=== PATIENT | female | born 1975 | race Caucasian/White ===

== ENCOUNTER 2018-09-09 04:27 | Inpatient (IN) | payer MEDICAID ==
[~2018-09-09] VITALS: Ht 121.9 cm; Wt 31.5 kg
[~2018-09-09 04:27] MED LIST: DIVA-75 PO; ETHO250C5 PO; PHEN15TA18 PO; PHEN30TA42 PO
[2018-09-09] MEDS ORDERED: ONDANSETRON HCL 4MG/2ML INJ IV STA (05:12)
[2018-09-09] MEDS ORDERED: LORAZEPAM 2MG/ML CPJ IV ONE (05:15)
[2018-09-09 05:47] LABS: BASOPHILS % 0.7 % (0.0-2.0); EOSINOPHILS % 3.4 % (0.0-5.0); HEMATOCRIT. 33.5 % (36.0-48.0); HEMOGLOBIN. 11.1 g/dL (12.0-16.0); MEAN CORPUSCULAR HEMOGLOBIN 28.8 pg (28.0-32.0); MEAN CORPUSCULAR VOLUME 86.8 fL (81.0-99.0); MONOCYTES % 8.2 % (2.0-8.0); NEUTROPHILS % 43.7 % (40.0-76.0); PLATELET 252 x1000/uL (130-400); RED BLOOD CELL COUNT 3.86 mill/uL (4.2-5.4); RED CELL DISTRIBUTION WIDTH 18.1 % (11.6-14.6)
[2018-09-09 05:51] LABS: CHLORIDE 105 mEq/L (98-107)
[2018-09-09 06:09] LABS: PHENOBARBITAL 26.9 ug/mL (15.0-40.0)
[2018-09-09] MEDS ORDERED: HYDROCODONE/ACETAMINOPHEN 5/325MG TABLET PO PRN (06:30)
[2018-09-09] MEDS ORDERED: ACETAMINOPHEN 325MG TABLET PO PRN (06:30)
[2018-09-09] MEDS ORDERED: CLONIDINE 0.1MG TABLET PO PRN (06:30)
[2018-09-09] MEDS ORDERED: ONDANSETRON HCL 4MG/2ML INJ IV PRN (06:30)
[2018-09-09] MEDS ORDERED: LORAZEPAM 2MG/ML CPJ IV PRN (06:30)
[2018-09-09] MEDS ORDERED: IPRATROPIUM/ALBUTEROL 0.5-3(2.5)MG/3ML NEB INH PRN (06:30)
[2018-09-09 07:02] LABS: LDL CHOLESTEROL 93 mg/dL (5-100); PHOSPHORUS 3.6 mg/dL (2.5-4.9)
[2018-09-09 07:05] LABS: HDL CHOLESTEROL 95 mg/dL (40-59)
[2018-09-09 09:00] VITALS: BP_SYST 103; BP_SYST 165; BP_DIAS 65; BP_DIAS 96
[2018-09-09] MEDS ORDERED: DIVALPROEX SODIUM 250 MG PO SCH (09:00)
[2018-09-09] MEDS ORDERED: PHENOBARBITAL 30 MG PO SCH (09:00)
[2018-09-09 09:02] LABS: CLARITY URINE CLEAR (CLEAR); COLOR URINE YELLOW (YELLOW); KETONES URINE NEGATIVE (NEGATIVE); LEUKOCYTE ESTERASE URINE NEGATIVE (NEGATIVE); NITRITE URINE NEGATIVE (NEGATIVE); OCCULT BLOOD URINE 3+ (NEGATIVE); PROTEIN URINE NEGATIVE (NEGATIVE); SPECIFIC GRAVITY URINE 1.007 (1.005-1.030); UROBILINOGEN URINE 0.2 E.U./dL (0.2-1.0)
[2018-09-09] MEDS ORDERED: DIVALPROEX SODIUM 250MG DR TABLET PO SCH (09:15)
[2018-09-09 10:03] LABS: *AMPHETAMINES SCREEN URINE NEGATIVE (NEGATIVE); *BENZODIAZEPINES SCREEN URINE NEGATIVE (NEGATIVE); *COCAINE SCREEN URINE NEGATIVE (NEGATIVE); CANNABINOID URINE SCREEN NEGATIVE (NEGATIVE); OPIATES URINE SCREEN NEGATIVE (NEGATIVE); PHENCYCLIDINE URINE SCREEN NEGATIVE (NEGATIVE)
[2018-09-09 10:04] LABS: METHADONE URINE SCREEN NEGATIVE (NEGATIVE)
[2018-09-09 10:12] LABS: *BARBITURATES SCREEN URINE PRESUMTIVE POSITIVE (NEGATIVE)
[2018-09-09] MEDS: PHENOBARBITAL 30 MG TABLET PO SCH ×2 (10:56→20:49)
[2018-09-09 12:00] VITALS: BP 103/65
[2018-09-09] MEDS: ETHOSUXIMIDE 250 MG CAPSULE PO SCH ×2 (14:12→20:53)
[2018-09-09 16:00] VITALS: BP 98/65
[2018-09-09 18:07] LABS: TOTAL IRON BINDING CAPACITY 348 ug/dL (250-450)
[2018-09-09 18:19] LABS: FOLIC ACID (FOLATE) SERUM >20 ng/mL ng/mL (>5.38)
[2018-09-09 18:30] LABS: FERRITIN 26 ng/mL (10-291); VITAMIN B12 SERUM 514 pg/mL (211-911)
[2018-09-09 20:00] VITALS: BP 122/86
[2018-09-09] MEDS: DIVALPROEX SODIUM 250MG DR TABLET PO SCH (20:49)
[2018-09-09] MEDS ORDERED: PHENOBARBITAL 15 MG PO SCH (21:00)
[2018-09-10] VITALS: BP 137/95
[2018-09-10 04:00] VITALS: BP 109/73
[2018-09-10 08:00] VITALS: BP_SYST 103; BP_SYST 121; BP_DIAS 58; BP_DIAS 69
[2018-09-10 08:04] LABS: BASOPHILS % 0.5 % (0.0-2.0); EOSINOPHILS % 1.5 % (0.0-5.0); HEMATOCRIT. 27.4 % (36.0-48.0); HEMOGLOBIN. 9.2 g/dL (12.0-16.0); LYMPHOCYTES % 23.5 % (20.0-50.0); MEAN CORPUSCULAR HEMOGLOBIN 29.3 pg (28.0-32.0); MEAN CORPUSCULAR VOLUME 86.7 fL (81.0-99.0); NEUTROPHILS % 70.5 % (40.0-76.0); PLATELET 199 x1000/uL (130-400); RED BLOOD CELL COUNT 3.15 mill/uL (4.2-5.4); RED CELL DISTRIBUTION WIDTH 18.1 % (11.6-14.6)
[2018-09-10 08:06] LABS: CHLORIDE 102 mEq/L (98-107)
[2018-09-10] MEDS: PHENOBARBITAL 30 MG TABLET PO SCH ×2 (08:55→21:09)
[2018-09-10] MEDS: DIVALPROEX SODIUM 250MG DR TABLET PO SCH ×2 (08:55→21:08)
[2018-09-10] MEDS: ETHOSUXIMIDE 250 MG CAPSULE PO SCH ×2 (08:58→21:09)
[2018-09-10 12:00] VITALS: BP 106/74
[2018-09-10 14:00] VITALS: BP 119/89
[2018-09-10 20:00] VITALS: BP 126/81
[2018-09-11] VITALS: BP 141/92
[2018-09-11 04:00] VITALS: BP 132/87
[2018-09-11 08:00] VITALS: BP 103/72
[2018-09-11 09:28] LABS: BASOPHILS % 0.6 % (0.0-2.0); EOSINOPHILS % 5.9 % (0.0-5.0); HEMATOCRIT. 28.3 % (36.0-48.0); HEMOGLOBIN. 9.5 g/dL (12.0-16.0); LYMPHOCYTES % 34.5 % (20.0-50.0); MEAN CORPUSCULAR HEMOGLOBIN 29.6 pg (28.0-32.0); MEAN CORPUSCULAR VOLUME 87.7 fL (81.0-99.0); MEAN PLATELET VOLUME 7.1 fl (7.4-10.4); MONOCYTES % 4.9 % (2.0-8.0); NEUTROPHILS % 54.1 % (40.0-76.0); PLATELET 205 x1000/uL (130-400); RED BLOOD CELL COUNT 3.23 mill/uL (4.2-5.4); RED CELL DISTRIBUTION WIDTH 18.4 % (11.6-14.6)
[2018-09-11] MEDS: ETHOSUXIMIDE 250 MG CAPSULE PO SCH (09:29)
[2018-09-11] MEDS: PHENOBARBITAL 30 MG TABLET PO SCH (09:29)
[2018-09-11] MEDS: DIVALPROEX SODIUM 250MG DR TABLET PO SCH (09:29)
[2018-09-11 09:50] LABS: CHLORIDE 105 mEq/L (98-107)
[2018-09-11 12:00] VITALS: BP 112/80
[2018-09-11] MEDS ORDERED: DIVA250T4 PO (12:23)
[2018-09-11] MEDS ORDERED: FERR325T6 MT (12:23)
[2018-09-11 13:08] VITALS: BP 112/80
== END 2018-09-11 16:00 | disposition home or self-care (01) | DRG 53 ==
LOC: ER 05:23 → 5WST 05:45 → EDBEDREQ 05:47 → EDBEDREQTM 05:47 → ENRESERV 07:28
PROVIDERS: ADMIT Internal Medicine; ATTEND Internal Medicine
DX: G40.909 Epilepsy, unspecified, not intractable, without status epilepticus (principal); G80.9 Cerebral palsy, unspecified; D64.9 Anemia, unspecified; N21.0 Calculus in bladder; D72.829 Elevated white blood cell count, unspecified; E78.00 Pure hypercholesterolemia, unspecified; E78.5 Hyperlipidemia, unspecified; F79 Unspecified intellectual disabilities; I10 Essential (primary) hypertension; R31.9 Hematuria, unspecified
CPT/HCPCS: 36415; 70551; 71045; 74176; 76770; 80048; 80061; 80165; 80184; 80185; 80305; 82607; 82728; 82746; 83036; 83540; 83550; 83605; 83735; 84100; 84443; 93005; 99291; J2060; J2405

== ENCOUNTER 2019-07-31 01:07 | Emergency (ER) | payer MEDICAID ==
[~2019-07-31] VITALS: Ht 129.5 cm
[~2019-07-31 01:07] MED LIST changes: -DIVA-75 PO; +DIVA250T4 PO; +FERR325T6 MT
[2019-07-31 02:35] VITALS: BP 124/67
== END 2019-07-31 02:36 | disposition home or self-care (01) ==
LOC: ER 01:31
DX: R05 Cough (principal); G80.9 Cerebral palsy, unspecified
CPT/HCPCS: 71045; 99283

== ENCOUNTER 2020-02-29 11:56 | Emergency (ER) | payer MEDICARE, MEDICAID ==
[~2020-02-29] VITALS: Ht 96.5 cm; Wt 34.0 kg
[2020-02-29] MEDS ORDERED: SODIUM CHLORIDE 0.9% 1,000 ML IV ONE ×3 (12:16→14:00)
[2020-02-29 13:29] LABS: CHLORIDE 109 mEq/L (98-107)
[2020-02-29 13:33] LABS: BASOPHILS % 0.7 % (0.0-2.0); EOSINOPHILS % 3.6 % (0.0-5.0); HEMATOCRIT. 38.6 % (36.0-48.0); HEMOGLOBIN. 13.4 g/dL (12.0-16.0); MEAN CORPUSCULAR HEMOGLOBIN 32.1 pg (28.0-32.0); MEAN CORPUSCULAR VOLUME 92.2 fL (81.0-99.0); MEAN PLATELET VOLUME 6.7 fl (7.4-10.4); MONOCYTES % 6.1 % (2.0-8.0); NEUTROPHILS % 65.6 % (40.0-76.0); PLATELET 286 x1000/uL (130-400); RED BLOOD CELL COUNT 4.19 mill/uL (4.2-5.4); RED CELL DISTRIBUTION WIDTH 14.5 % (11.6-14.6)
[2020-02-29 13:34] LABS: ETHANOL BLOOD < 10 mg/dL; HCG SCREEN NEGATIVE
[2020-02-29 13:41] LABS: PHENOBARBITAL 74.2 ug/mL (15.0-40.0)
[2020-02-29 13:50] LABS: CLARITY URINE CLEAR (CLEAR); COLOR URINE DARK YELLOW (YELLOW); KETONES URINE TRACE (NEGATIVE); LEUKOCYTE ESTERASE URINE TRACE (NEGATIVE); NITRITE URINE NEGATIVE (NEGATIVE); OCCULT BLOOD URINE NEGATIVE (NEGATIVE); PROTEIN URINE 2+ (NEGATIVE); SPECIFIC GRAVITY URINE 1.035 (1.005-1.030)
[2020-02-29 14:30] LABS: *AMPHETAMINES SCREEN URINE NEGATIVE (NEGATIVE); *BENZODIAZEPINES SCREEN URINE NEGATIVE (NEGATIVE); *COCAINE SCREEN URINE NEGATIVE (NEGATIVE)
[2020-02-29 14:31] LABS: CANNABINOID URINE SCREEN NEGATIVE (NEGATIVE); METHADONE URINE SCREEN NEGATIVE (NEGATIVE); OPIATES URINE SCREEN NEGATIVE (NEGATIVE); PHENCYCLIDINE URINE SCREEN NEGATIVE (NEGATIVE)
[2020-02-29 14:34] LABS: *BARBITURATES SCREEN URINE PRESUMTIVE POSITIVE (NEGATIVE)
[2020-02-29 16:17] VITALS: BP 127/80
== END 2020-02-29 16:43 | disposition home or self-care (01) ==
LOC: ER 12:05
DX: R56.9 Unspecified convulsions (principal); T42.6X5A Adverse effect of other antiepileptic and sedative-hypnotic drugs, initial encounter; Y92.89 Other specified places as the place of occurrence of the external cause; Z79.899 Other long term (current) drug therapy
CPT/HCPCS: 36415; 80053; 80165; 80184; 80305; 80320; 81003; 84703; 85025; 99285; J7030; G0480

== ENCOUNTER 2020-10-09 18:13 | Emergency (ER) | payer MEDICARE, MEDICAID ==
[~2020-10-09] VITALS: Ht 121.9 cm; Wt 37.0 kg
[2020-10-09 18:21] VITALS: BP 169/115
[2020-10-09] MEDS ORDERED: PHENYTOIN SODIUM 1,000 MG in SODIUM CHLORIDE 0.9% 100 ML IV ONE (18:45)
[2020-10-09 19:17] LABS: EOSINOPHILS % 2.1 % (0.0-5.0); HEMATOCRIT. 35.9 % (36.0-48.0); HEMOGLOBIN. 12.2 g/dL (12.0-16.0); MEAN CORPUSCULAR HEMOGLOBIN 29.2 pg (28.0-32.0); MEAN CORPUSCULAR VOLUME 86.2 fL (81.0-99.0); MEAN PLATELET VOLUME 6.9 fl (7.4-10.4); MONOCYTES % 7.7 % (2.0-8.0); NEUTROPHILS % 54.2 % (40.0-76.0); PLATELET 349 x1000/uL (130-400); RED BLOOD CELL COUNT 4.16 mill/uL (4.2-5.4)
[2020-10-09 19:24] LABS: CHLORIDE 108 mEq/L (98-107)
[2020-10-09 19:27] LABS: ETHANOL BLOOD < 10 mg/dL; HCG SCREEN NEGATIVE
[2020-10-09 19:32] LABS: PHENOBARBITAL 27.6 ug/mL (15.0-40.0); VALPROIC ACID <3.0 ug/mL ug/mL (50-100)
== END 2020-10-09 21:00 | disposition home or self-care (01) ==
LOC: ER 18:13
DX: G40.909 Epilepsy, unspecified, not intractable, without status epilepticus (principal); G80.9 Cerebral palsy, unspecified; Z79.899 Other long term (current) drug therapy
CPT/HCPCS: 36415; 80053; 80165; 80184; 80185; 80320; 84703; 85025; 99283; J1165; J7050; G0480

== ENCOUNTER 2022-06-08 12:11 | Emergency (ER) | payer MEDICARE, MEDICAID ==
[~2022-06-08] VITALS: Ht 157.5 cm; Wt 65.0 kg
[~2022-06-08 12:11] MED LIST changes: -PHEN15TA18 PO; +PHEN15TA25 PO; -PHEN30TA42 PO; +PHEN30TA50 PO
[2022-06-08 14:41] LABS: HCG SCREEN NEGATIVE
[2022-06-08] MEDS ORDERED: BENZ100C86 MT (15:52)
[2022-06-08 16:15] VITALS: BP 133/78
== END 2022-06-08 16:41 | disposition home or self-care (01) ==
LOC: ER 12:11
DX: R05.3 Chronic cough (principal); F79 Unspecified intellectual disabilities; F80.2 Mixed receptive-expressive language disorder
CPT/HCPCS: 71045; 84703; 99284